=== PATIENT | male | born 1950 | race Caucasian/White ===

== ENCOUNTER → 2023-10-26 | Outpatient (CLI) | payer MEDICARE, BC ==
[~2023-10-26] MED LIST: ALLFEN400 MG PO; ALLOPURINOL300 MG PO; BYSTOLIC10 MG PO; CARDURA 2MG2 MG PO; CARISOPRODOL350 MG PO; COZAAR 50MG50 MG/TAB PO; COZAAR25 MG PO; DIAZEPAM5 MG PO; DIPHENHYDRAMINE25 MG PO; DOXAZOSIN MESYLA2 MG PO; FUROSEMIDE20 MG PO; HYDROCODONE/APAP; IBUPROFEN200 M1 PO; LIPITOR 40MG TA40 MG PO; MUCINEX 60600 MG/TA1 PO; NORCO 325 MG-7.1 TAB PO; OMEPRAZOLE20 MG PO; PRILOSEC 20MG20 MG PO; PROPRANOLOL ER80 MG PO; ROXICODONE 55 MG/TAB PO; STOOL SOFTENER100 M2; SUDAFED30 MG PO; TYLENOL EXTRA500 M1 PO; VALIUM 2MG T2 MG/TAB PO; VYTORIN 10 MG-11 TAB PO; ZANAFLEX CAPSULE4 MG PO
== END ==
LOC: COL.RAD 07:42
DX: M47.27 Other spondylosis with radiculopathy, lumbosacral region (principal); M51.16 Intervertebral disc disorders with radiculopathy, lumbar region; M48.061 Spinal stenosis, lumbar region without neurogenic claudication; M48.07 Spinal stenosis, lumbosacral region